=== PATIENT | female | born 2000 | race Caucasian/White ===

== ENCOUNTER 2021-05-21 16:31 | Emergency (ER) | payer OTHER, SELFPAY ==
[2021-05-21 16:38] VITALS: BP 125/72; PULSE 83; RESP 20; TEMP 37.2; O2SAT 100
--- NOTE | 2021-05-21 16:39 | ED.BACK ---
HPI - Back Pain/Injury General Chief Complaint: Back Pain/Injury Stated Complaint: Pain on right side of Ribs and left side of Back Time Seen by Provider: 05/21/21 16:39 Source: patient, family and RN notes reviewed History of Present Illness HPI Narrative: Patient is a 20-year-old female who presents the urgent care with her mother with complaints of left rib pain. 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 Patient states that she took Tylenol for the pain. States that when she holds the ribs it tends to feel better. States that she has had dark urine the past couple days but denies of any other urinary complaints such as frequency, urgency, hematuria. Patient denies of any trauma to the chest or ribs. Denies any shortness of breath or cough. No other acute complaints. No acute distress noted. Patient aware of the plan of care. Some parts of this dictation were generated by voice recognition software and may contain typographical and/or grammatical inaccuracies. Related Data Home Medications Medication Instructions Recorded Confirmed norelgestromin-ethin.estradiol 1 patch TRANSDERMAL WEEKLY 05/21/21 05/21/21 [Sondra] Allergies Allergy/AdvReac Type Severity Reaction Status Date / Time No Known Allergies Allergy Verified 05/21/21 16:47 Review of Systems Review of Systems: CONSTITUTIONAL: Denies fever, chills, or sweats. EYES: Denies visual changes, redness, or discharge. ENT: Denies rhinorrhea, congestion, sore throat, or otalgia. CARDIOVASCULAR: Denies chest pain, palpitations, or edema. RESPIRATORY: Denies cough or dyspnea. GASTROINTESTINAL: Denies abdominal pain, nausea, vomiting, or diarrhea. GENITOURINARY: Denies dysuria or hematuria. SKIN: Denies rash or itching. MUSCULOSKELETAL: Reports of right rib pain radiating to the right side/back NEUROLOGIC: Denies headache, numbness, or weakness. All other systems reviewed are negative, except as documented in HPI. PMFSH Comments At the time of my signature, I reviewed and agree with the nursing past medical, surgical, social, and family history. There is no relevant family history pertinent to the patient complaint. Exam Narrative: GENERAL: This is a well-nourished, well-developed patient, in no apparent distress. HEAD: normocephalic, atraumatic. EYES: PERRL. Sclera clear/white. Vision is grossly intact. EARS: External ears normal NOSE: External nose normal with no obvious nasal discharge, nares without redness, no rhinorrhea. THROAT: Mucous membranes moist NECK: Neck supple CARDIOVASCULAR: Regular rate and rhythm without murmurs, gallops, or rubs. RESPIRATORY: Negative anterior rib tenderness. Clear to auscultation. Breath sounds equal bilaterally. No wheezes, rales, or rhonchi. GASTROINTESTINAL: Abdomen soft, non-tender, nondistended. Bowel sounds are active. SKIN: warm, intact with no suspicious lesions or rash, good texture and turgor. NEURO: awake, alert, and oriented to person, place and time. There were no obvious focal neurologic abnormalities. EXTREMITIES: No clubbing, cyanosis, or edema. BACK: Nontender without deformity or crepitance. No flank tenderness. Course Vital Signs Vital signs: Vital Signs Temperature 99.0 F 05/21/21 16:38 Pulse Rate 83 05/21/21 16:38 Respiratory Rate 20 05/21/21 16:38 Blood Pressure 125/72 05/21/21 16:38 Pulse Oximetry 100 05/21/21 16:38 Temperature 99.0 F 05/21/21 16:38 Pulse Rate 83 05/21/21 16:38 Respiratory Rate 20 05/21/21 16:38 Blood Pressure 125/72 05/21/21 16:38 Pulse Oximetry 100 05/21/21 16:38 Reviewed MDM - Back Pain/Injury MDM Narrative Medical decision making narrative: Reviewed lab results with the mother and patient. Aware that urine analysis is not indicative of urinary tract infection. Considering your line of work, you may have pulled a muscle and was advised to take a day or 2 off work to rest.
== END 2021-05-21 17:05 | disposition home or self-care (01) ==
PROVIDERS: Emergency Provider Nurse Practitioner Family
DX: S29.011A Strain of muscle and tendon of front wall of thorax, initial encounter (principal); S29.012A Strain of muscle and tendon of back wall of thorax, initial encounter; X58.XXXA Exposure to other specified factors, initial encounter
CPT/HCPCS: 81003; 99212; G0463

== ENCOUNTER 2022-04-25 12:56 | Emergency (ER) | payer OTHER, SELFPAY ==
[2022-04-25 13:15] VITALS: BP 116/68; PULSE 66; RESP 14; TEMP 36.9; O2SAT 100
--- NOTE | 2022-04-25 13:32 | ED.GENADULT ---
HPI - General Adult General Chief complaint: Unspecified Stated complaint: Pregancy Test History of Present Illness HPI narrative: Patient left without being seen. Related Data Home Medications Medication Instructions Recorded Confirmed No Home Medications 04/25/22 04/25/22 Allergies Allergy/AdvReac Type Severity Reaction Status Date / Time No Known Allergies Allergy Verified 04/25/22 13:19 Course Course Level of Care: Express Care Visit Vital Signs Vital signs: Vital Signs Temperature 36.9 C 04/25/22 13:15 Pulse Rate 66 04/25/22 13:15 Respiratory Rate 14 04/25/22 13:15 Blood Pressure 116/68 04/25/22 13:15 Pulse Oximetry 100 04/25/22 13:15 Oxygen Delivery Room Air 04/25/22 13:15 Temperature 36.9 C 04/25/22 13:15 Pulse Rate 66 04/25/22 13:15 Respiratory Rate 14 04/25/22 13:15 Blood Pressure 116/68 04/25/22 13:15 Pulse Oximetry 100 04/25/22 13:15 Oxygen Delivery Room Air 04/25/22 13:15 Medical Decision Making Vital Signs Vital Signs: Vital Signs Temperature 36.9 C 04/25/22 13:15 Pulse Rate 66 04/25/22 13:15 Respiratory Rate 14 04/25/22 13:15 Blood Pressure 116/68 04/25/22 13:15 Pulse Oximetry 100 04/25/22 13:15 Oxygen Delivery Room Air 04/25/22 13:15 Temperature 36.9 C 04/25/22 13:15 Pulse Rate 66 04/25/22 13:15 Respiratory Rate 14 04/25/22 13:15 Blood Pressure 116/68 04/25/22 13:15 Pulse Oximetry 100 04/25/22 13:15 Oxygen Delivery Room Air 04/25/22 13:15 Discharge Plan Discharge Patient Disposition: Left Without Being Sn Triaged Prescriptions: No Action No Home Medications Follow-up/Referrals: PHYSICIAN,TURKEY EGG GATHERER [Primary Care Provider] -
== END 2022-04-25 13:33 | disposition left against medical advice (07) ==
PROVIDERS: Emergency Provider Nurse Practitioner Family
DX: Z53.21 Procedure and treatment not carried out due to patient leaving prior to being seen by health care provider (principal)
CPT/HCPCS: 99199

== ENCOUNTER 2022-11-23 13:18 | Emergency (ER) | payer OTHER, SELFPAY ==
[2022-11-23 13:22] VITALS: BP 137/77; PULSE 79; RESP 20; TEMP 36.6; O2SAT 100
--- NOTE | 2022-11-23 13:30 | ED.EAR ---
HPI - Ear Problem General Chief complaint: Ear Stated complaint: Left ear sounds Time Seen by Provider: 11/23/22 13:33 History of Present Illness HPI Narrative: PATIENT PRESENTS WITH THE FEELING OF FLUID IN HER LEFT EAR NO DRAINAGE FROM EARS NO DIZZINESS NO RECENT URI Related Data Home Medications Medication Instructions Recorded Confirmed No Home Medications 04/25/22 04/25/22 Allergies Allergy/AdvReac Type Severity Reaction Status Date / Time No Known Allergies Allergy Verified 04/25/22 13:19 Review of Systems Review of Systems: CONSTITUTIONAL: DENIES CHILLS, OR SWEATS. REPORTS FEVER AND GENERALIZED BODY ACHES EYES: DENIES VISUAL CHANGES, REDNESS, OR DISCHARGE. ENT: DENIES OTALGIA. REPORTS NASAL CONGESTION RUNNY NOSE AND SORE THROAT CARDIOVASCULAR: DENIES CHEST PAIN, PALPITATIONS, OR EDEMA. RESPIRATORY: DENIES DYSPNEA. REPORTS OCCASIONAL COUGH GASTROINTESTINAL: DENIES ABDOMINAL PAIN, NAUSEA, VOMITING, OR DIARRHEA. GENITOURINARY: DENIES DYSURIA OR HEMATURIA. SKIN: DENIES RASH OR ITCHING. MUSCULOSKELETAL: DENIES BACK PAIN, JOINT PAIN, OR MYALGIA. REPORTS GENERALIZED BODY ACHES NEUROLOGIC: DENIES HEADACHE, NUMBNESS, OR WEAKNESS. PSYCHIATRIC: DENIES ANXIETY OR DEPRESSION. PMFSH Comments AT TIME OF SIGNATURE, AGREE WITH NURSING PAST MEDICAL, SURGICAL, SOCIAL AND FAMILY HISTORY. THERE IS NO RELEVANT FAMILY HISTORY PERTINENT TO THE PRESENTING COMPLAINT Exam Narrative: THE PATIENT IS A WELL-DEVELOPED, WELL-NOURISHED IN NO ACUTE DISTRESS. SKIN: SKIN IS WARM AND DRY WITHOUT ERYTHEMA, SWELLING OR EXUDATE. THERE IS GOOD TURGOR. NO TENTING. HEAD: ATRAUMATIC. NORMOCEPHALIC. NO TEMPORAL OR SCALP TENDERNESS. EYES: MOIST AND BRIGHT. SCLERA AND CONJUNCTIVAE NORMAL. NO DISCHARGE. PERRLA. EXTRAOCULAR MOTIONS INTACT. GROSS VISUAL ACUITY INTACT. EARS: PINNA IS NORMAL SHAPE AND CONTOUR. CLEAR EXTERNAL AUDITORY CANALS. TM PEARLY SHELBY WITH GOOD CONE OF LIGHT, NO ERYTHEMA OR SUPPURATION. BILATERAL CERUMEN NOTED NO GROSS HEARING DEFICIT. NOSE: PINK, MOIST MUCOSA WITH GOOD AIR MOVEMENT. CLEAR RHINORRHEA WITHOUT NASAL FLARING. SEPTUM MIDLINE. MOUTH: MOIST MUCOUS MEMBRANES. THROAT; MILD ERYTHEMA NOTED TO POSTERIOR OROPHARYNX WITH MODERATE POSTNASAL DRAINAGE. WITHOUT EXUDATE OR ULCERATION.. UVULA MIDLINE. NORMAL MOVEMENT OF SOFT PALATE. NECK: SUPPLE AND NONTENDER WITH FULL RANGE OF MOTION WITHOUT DISCOMFORT. NO MENINGEAL SIGNS. LUNGS: EQUAL AND BILATERAL BREATH SOUNDS WITHOUT WHEEZES, RALES OR RHONCHI. CHEST: THE CHEST WALL IS WITHOUT RETRACTIONS OR USE OF ACCESSORY MUSCLES. HEART: HAS A REGULAR RATE AND RHYTHM WITHOUT MURMUR, GALLOPS, CLICK OR RUB. ABDOMEN: SOFT, NONTENDER WITH POSITIVE ACTIVE BOWEL SOUNDS. NO REBOUND TENDERNESS. EXTREMITIES: WITHOUT CYANOSIS, CLUBBING OR EDEMA. EQUAL 2+ DISTAL PULSES AND 2 SECOND CAPILLARY REFILL NOTED. NEUROLOGIC: ALERT, ACTIVE, . THE PATIENT MOVES ALL EXTREMITIES WITH NORMAL MUSCLE STRENGTH. NORMAL MUSCLE TONE IS NOTED. NORMAL COORDINATION IS NOTED. NO FOCAL NEUROLOGICAL FINDINGS NOTED. Course Course Level of Care: Express Care Visit Vital Signs Vital signs: Vital Signs Temperature 36.6 C 11/23/22 13:22 Pulse Rate 79 11/23/22 13:22 Respiratory Rate 20 11/23/22 13:22 Blood Pressure 137/77 11/23/22 13:22 Pulse Oximetry 100 11/23/22 13:22 Oxygen Delivery Room Air 11/23/22 13:22 Temperature 36.6 C 11/23/22 13:22 Pulse Rate 79 11/23/22 13:22 Respiratory Rate 20 11/23/22 13:22 Blood Pressure 137/77 11/23/22 13:22 Pulse Oximetry 100 11/23/22 13:22 Oxygen Delivery Room Air 11/23/22 13:22 Medical Decision Making Vital Signs Vital Signs: Vital Signs Temperature 36.6 C 11/23/22 13:22 Pulse Rate 79 11/23/22 13:22 Respiratory Rate 20 11/23/22 13:22 Blood Pressure 137/77 11/23/22 13:22 Pulse Oximetry 100 11/23/22 13:22 Oxygen Delivery Room Air 11/23/22 13:22 Temperature 36.6 C 11/23/22 13:22 Pulse Rate 79 11/23/22 13:22
== END 2022-11-23 13:39 | disposition home or self-care (01) ==
PROVIDERS: Emergency Provider Nurse Practitioner Family; PCP Family Medicine
DX: H69.92 Unspecified Eustachian tube disorder, left ear (principal); H65.92 Unspecified nonsuppurative otitis media, left ear
CPT/HCPCS: 99211; G0463

== ENCOUNTER 2023-07-04 14:29 | Emergency (ER) | payer OTHER, SELFPAY ==
[2023-07-04 14:35] VITALS: BP 119/88; PULSE 79; RESP 16; TEMP 36.8; O2SAT 100
--- NOTE | 2023-07-04 14:43 | ED.GENADULT ---
HPI - General Adult General Chief complaint: Unspecified Stated complaint: Lightheaded Time Seen by Provider: 07/04/23 14:43 Source: patient, RN notes reviewed and old records reviewed Mode of arrival: ambulatory Limitations: no limitations History of Present Illness HPI narrative: 22-year-old female presents to the [facility] feeling lightheaded this morning. Patient reports that she was at work when she got lightheaded, started feeling very hot. Denies any symptoms currently. Denies any blurry vision or change in vision. Denies any headaches, sinus congestion, ear pain. Denies fevers Related Data Home Medications Medication Instructions Recorded Confirmed No Home Medications 04/25/22 04/25/22 Allergies Allergy/AdvReac Type Severity Reaction Status Date / Time No Known Allergies Allergy Verified 04/25/22 13:19 Review of Systems Review of Systems: All systems reviewed & are unremarkable except as noted in HPI and below Constitutional: Constitutional: Reports as per HPI Eyes: Eyes: Reports no additional eye complaints ENT: Reports system reviewed and no additional complaints, except as documented Cardiovascular: Cardiovascular: Reports no additional cardiovascular complaints, Denies chest pain and Denies dyspnea Respiratory: Respiratory: Reports no additional respiratory complaints, Denies chest congestion, Denies cough and Denies dyspnea Gastrointestinal: Gastrointestinal: Reports no additional gastrointestinal complaints, Denies abdominal pain, Denies nausea and Denies vomiting Musculoskeletal: Musculoskeletal: Reports no additional musculoskeletal complaints Integumentary/Breasts: Skin/Breast: Reports system reviewed and no additional complaints, except as docu Neurologic: Reports system reviewed and no additional complaints, except as documented Psychiatric: Psychiatric: Reports no additional psychiatric complaints Allergic/Immunologic: Allergic/Immunologic: Reports no additional allergic/immunologic complaints PMFSH Comments At the time of my signature, I reviewed and agree with the nursing past medical, surgical, social, and family history. There is no relevant family history pertinent to the patient complaint. Exam Const: General: cooperative, healthy appearing, comfortable, no acute distress, well developed, alert and well nourished Nutritional Appearance: well nourished Orientation/consciousness: patient oriented x3 Limitations: no limitations HENMT: Head: normal to inspection Ears: hearing grossly normal bilaterally, external ears normal, TM's normal bilaterally, EAC's normal and mastoids normal Face/Nose/Sinus: Normal external nose present, Normal nares present, Normal nasal mucous membranes and turbinates present, normal facial exam and face symmetric Face and sinus: normal facial exam and face symmetric Mouth: Yes Normal oral and palatal mucosa present, Yes lip normal and Yes moist mucous membranes Throat: posterior oropharynx normal, tonsils normal and uvula midline Eyes: General: appearance normal, both eyes and all related structures Alignment and Position: alignment normal Periorbital: periorbital findings normal Eyelids: eyelids normal Conjunctivae: conjunctivae normal Pupils: Equal, round and reactive pupils present EOM: EOMs intact bilaterally Neck: Neck: normal visual inspection, full ROM, no lymphadenopathy and no meningeal signs Chest: Chest palpation & inspection: normal inspection of the chest Resp: Effort & Inspection: normal respiratory effort and able to speak in complete sentences Auscultation: clear to auscultation bilaterally, no crackles, no rales, no rhonchi and no wheezes Cardio: Rate: regular rate Rhythm: regular rhythm Back/Spine/Pelvis: Cervical Spine: cervical ROM normal Skin: General skin exam: normal color and no rashes or lesions noted Lesions: no lesions Rashes: no rashes Wounds: no wounds Neuro: General: patient oriented x3, gait normal, to
== END 2023-07-04 14:54 | disposition home or self-care (01) ==
PROVIDERS: Emergency Provider Nurse Practitioner
DX: R42 Dizziness and giddiness (principal)
CPT/HCPCS: 99211; G0463

== ENCOUNTER 2023-09-27 10:31 | Emergency (ER) | payer OTHER, SELFPAY ==
[2023-09-27 10:45] VITALS: BP 139/82; PULSE 83; RESP 16; TEMP 36.9; O2SAT 99
--- NOTE | 2023-09-27 10:45 | ED.URI ---
HPI - URI/Sore Throat General Chief Complaint: Upper Respiratory Infection Stated Complaint: Cough Source: patient Mode of arrival: ambulatory Limitations: no limitations History of Present Illness HPI Narrative: 23-year-old female presented for complaint of nasal congestion and cough for about 5 days. She denies shortness of breath, wheezing, nausea, vomiting, fevers or chills. Endorses sick contacts at work. Taking DayQuil and NyQuil for symptoms. Related Data Allergies Allergy/AdvReac Type Severity Reaction Status Date / Time No Known Allergies Allergy Verified 04/25/22 13:19 Review of Systems Review of Systems: CONSTITUTIONAL: Denies body aches, fever, chills, or sweats. EYES: Denies visual changes, redness, or discharge. ENT: reports rhinorrhea, congestion, denies sore throat, or otalgia. CARDIOVASCULAR: Denies chest pain, palpitations, or edema. RESPIRATORY: Reports cough, denies sob, wheezing. GASTROINTESTINAL: Denies abdominal pain, nausea, vomiting, or diarrhea. SKIN: Denies rash, itching, or wounds. MUSCULOSKELETAL: Denies back pain, joint pain, or myalgia. NEUROLOGIC: Denies headache, numbness, tingling, or weakness. All systems reviewed & are unremarkable except as noted in HPI and below PMFSH Past Medical History Medical History (Updated 09/27/23 @ 11:00 by Buffy Nash, ALICIA) No pertinent past medical history Comments At time of signature, I have reviewed and agree with nursing past medical, surgical, social and family history unless otherwise noted. Please see nursing chart for further information. There is no relevant family history pertinent to the presenting complaint Exam Narrative: GENERAL: Well-appearing, in no acute distress. EYES: EOMI. No redness or drainage. Conjunctivae normal. ENT: Mucous membranes pink and moist. congestion and rhinorrhea. TMs normal bilaterally. Throat normal. Uvula midline. NECK: Normal AROM. Supple. CHEST: No respiratory distress. Lungs clear to all durant. HEART: Regular rate and rhythm. No murmur appreciated. ABDOMEN: Soft, nontender, nondistended, normal active bowel sounds. EXTREMITIES: Normal range of motion. No edema. SKIN: Warm, dry, no rash. Capillary refill normal. Normal skin turgor. NEURO: Alert and oriented x3. Gait steady. PSYCH: Normal affect. Course Course Emergency Course: Patient is aware of diagnosis, understands and agrees to treatment plan. Anticipatory guidance given. Patient agrees to follow-up as directed and is aware of reasons to seek care at the emergency department. Portions of this record may have been created with voice recognition software Level of Care: Express Care Visit MDM - URI/Sore Throat MDM Narrative Medical decision making narrative: Discussed physical exam findings. Advised supportive measures and signs/symptoms to go to the ER. Pt is appropriate for outpt treatment and f/u. Differential Diagnosis Differential diagnosis: Likely upper respiratory infection, otitis media, sinusitis, viral infection, bronchitis, influenza and pharyngitis Discharge Plan Discharge Clinical Impression: Viral infection Patient Disposition: Home, Self-Care Condition: Stable Instructions: Antibiotic Form, Upper Respiratory Infection (ED) Additional Instructions: Recommend Flonase spray and Zyrtec (or Claritin/Roxy) over the counter Cough syrup may cause drowsiness; avoid driving or take it at night time. Tylenol 1000mg every 8 hours as needed for pain Symptomatic treatment includes: rest, fluids, and increase humidity of the air at home. Follow up with your primary care provider in 1 week. Go to the ER for worsening symptoms or concerns. Prescriptions: New benzonatate 200 mg capsule 200 mg PO TID PRN (Reason: cough) Qty: 30 0RF prednisone 20 mg tablet 40 mg PO DAILY 5 Days Qty: 10 0RF Follow-up/Referrals: UNKNOWN,DOCTOR [Primary Care Provider] - Stand Alone For
== END 2023-09-27 11:13 | disposition home or self-care (01) ==
PROVIDERS: Emergency Provider Nurse Practitioner Family
DX: B34.9 Viral infection, unspecified (principal)
CPT/HCPCS: 99213; G0463

== ENCOUNTER 2024-03-26 12:10 | Emergency (ER) | payer OTHER, SELFPAY ==
[2024-03-26 12:15] VITALS: BP 134/85; PULSE 90; RESP 16; TEMP 36.6; O2SAT 100
--- NOTE | 2024-03-26 12:18 | ED.GENADULT ---
HPI - General Adult General Chief complaint: Dental/Oral Stated complaint: Tooth pain Time Seen by Provider: 03/26/24 12:18 Source: patient, RN notes reviewed and old records reviewed Mode of arrival: ambulatory Limitations: no limitations History of Present Illness HPI narrative: 23-year-old female to Express Care for left upper molar pain intermittently for 1 year. Patient reports that when pain initially started she could not be treated due to . Patient states she attempted to call her dentist this morning but they were not open. Patient states it pain became significant last night. patient has been attempting to treat at home with ibuprofen, acetaminophen and ice. Patient reports that she has an appointment with her dentist on April 12. Patient denies fever, drainage from tooth, pertinent medical history, allergies. Patient able to tolerate fluids by mouth. Patient in no acute distress. Related Data Home Medications Medication Instructions Recorded Confirmed norelgestromin 150 mcg-e.estradiol 1 patch transdermal [id number] 03/26/24 03/26/24 35 mcg/24 hr weekly transderm patch (Xulane) Allergies Allergy/AdvReac Type Severity Reaction Status Date / Time No Known Allergies Allergy Verified 03/26/24 12:27 Review of Systems Review of Systems: All systems reviewed & are unremarkable except as noted in HPI and below Constitutional: Constitutional: Reports no additional constitutional complaints Eyes: Eyes: Reports no additional eye complaints ENT: Reports as per HPI, Reports dental pain ( left upper molar) and Denies sore throat Cardiovascular: Cardiovascular: Reports no additional cardiovascular complaints, Denies chest pain and Denies dyspnea Respiratory: Respiratory: Reports no additional respiratory complaints, Denies cough and Denies dyspnea Musculoskeletal: Musculoskeletal: Reports no additional musculoskeletal complaints Neurologic: Reports system reviewed and no additional complaints, except as documented Psychiatric: Psychiatric: Reports no additional psychiatric complaints PMFSH Past Medical History Medical History No pertinent past medical history Comments At the time of my signature, I reviewed and agree with the nursing past medical, surgical, social, and family history. There is no relevant family history pertinent to the patient complaint. Exam Const: General: cooperative, no acute distress, alert, ill appearing acutely ( pain), tired appearing, uncomfortable and well nourished Nutritional Appearance: well nourished Orientation/consciousness: patient oriented x3 Limitations: no limitations HENMT: Head: normal to inspection Ears: external ears normal Face/Nose/Sinus: Normal external nose present, Normal nares present, normal facial exam, No erythema and No edema Face and sinus: normal facial exam, no erythema and no edema Mouth: Yes Normal oral and palatal mucosa present Teeth and gingiva: caries, gingiva abnormal diffusely erythematous and tender, poor dentition and other (fracture to left upper 2nd molar) Throat: posterior oropharynx normal Eyes: General: appearance normal, both eyes and all related structures Neck: Neck: normal visual inspection, full ROM and no meningeal signs Lymphatic: no lymphadenopathy noted and no lymphedema noted Chest: Chest palpation & inspection: normal inspection of the chest Resp: Effort & Inspection: normal respiratory effort and able to speak in complete sentences Cardio: Jugular venous distension: no JVD Rate: regular rate Rhythm: regular rhythm Back/Spine/Pelvis: Cervical Spine: cervical ROM normal Skin: General skin exam: normal color, no rashes or lesions noted and turgor normal Neuro: General: patient oriented x3, gait normal, moves all extremities and no meningeal signs Speech: normal speech Gait exam (Neuro): Normal gait present Extrem: General: normal
== END 2024-03-26 13:00 | disposition home or self-care (01) ==
PROVIDERS: Emergency Provider Nurse Practitioner Family
DX: K04.7 Periapical abscess without sinus (principal); K02.9 Dental caries, unspecified; S02.5XXA Fracture of tooth (traumatic), initial encounter for closed fracture; X58.XXXA Exposure to other specified factors, initial encounter
CPT/HCPCS: 99213; G0463

== ENCOUNTER 2024-04-28 16:40 | Emergency (ER) | payer OTHER, SELFPAY ==
[2024-04-28 16:47] VITALS: BP 134/83; PULSE 82; RESP 14; TEMP 36.6; O2SAT 100
--- NOTE | 2024-04-28 16:59 | ED.DENTAL ---
HPI - Dental/Oral General Chief complaint: Dental/Oral Stated complaint: bump on inside of cheek Time Seen by Provider: 04/28/24 16:55 Source: patient and RN notes reviewed Mode of arrival: ambulatory Limitations: no limitations History of Present Illness HPI Narrative: Patient presents today stating that she noticed a small blister on the inside of her right cheek on her way home from work this evening. Denies pain or swelling. She called her dentist, who told her they could get her in for an emergency visit tomorrow, but she would have to take off work for this, so she came to [facility] for evaluation. Related Data Home Medications Medication Instructions Recorded Confirmed norelgestromin 150 mcg-e.estradiol 1 patch transdermal [id number] 03/26/24 04/28/24 35 mcg/24 hr weekly transderm patch (Xulane) Allergies Allergy/AdvReac Type Severity Reaction Status Date / Time No Known Allergies Allergy Verified 03/26/24 12:27 Review of Systems Review of Systems: CONSTITUTIONAL: Denies body aches, fever, chills, or sweats. EYES: Denies visual changes, redness, or discharge. ENT: Denies rhinorrhea, congestion, sore throat, or otalgia.+ blister inside mouth CARDIOVASCULAR: Denies chest pain, palpitations, or edema. RESPIRATORY: Denies cough or dyspnea. GASTROINTESTINAL: Denies abdominal pain, nausea, vomiting, or diarrhea. GENITOURINARY: Denies dysuria or hematuria. SKIN: Denies rash, itching, or wounds. MUSCULOSKELETAL: Denies back pain, joint pain, or myalgia. NEUROLOGIC: Denies headache, numbness, tingling, or weakness. PSYCH: Denies depression or anxiety. PMFSH Past Medical History Medical History No pertinent past medical history Comments At time of signature, I have reviewed and agree with nursing past medical, surgical, social and family history unless otherwise noted. Please see nursing chart for further information. There is no relevant family history pertinent to the presenting complaint Exam Narrative: GENERAL: Well-appearing, well-nourished, and in no acute distress. HEAD: Normocephalic, atraumatic. EYES: EOMI. No redness or drainage. Conjunctivae normal. ENT: Mucous membranes pink and moist. 2mm round dark blister on the inside right cheek. No surrounding edema or erythema. NECK: Normal AROM. CHEST: No respiratory distress. EXTREMITIES: Normal range of motion. No edema. SKIN: Warm, dry, no rash. Capillary refill normal. Normal skin turgor. NEURO: No focal deficits. Alert and oriented x3. Gait steady. PSYCH: Normal affect. No signs of depression or anxiety. Course Course Level of Care: Express Care Visit Vital Signs Vital signs: Vital Signs Temperature 98 F 04/28/24 16:47 Pulse Rate 82 04/28/24 16:47 Respiratory Rate 14 04/28/24 16:47 Blood Pressure 134/83 04/28/24 16:47 Pulse Oximetry 100 04/28/24 16:47 Oxygen Delivery Room Air 04/28/24 16:47 Temperature 98 F 04/28/24 16:47 Pulse Rate 82 04/28/24 16:47 Respiratory Rate 14 04/28/24 16:47 Blood Pressure 134/83 04/28/24 16:47 Pulse Oximetry 100 04/28/24 16:47 Oxygen Delivery Room Air 04/28/24 16:47 Reviewed MDM - Dental/Oral MDM Narrative Medical decision making narrative: Patient's lesion appears that she may have bitten the inside of her cheek today. It appears benign. Does not warrant any treatment at this time. Anticipatory guidance given. Differential Diagnosis Differential diagnosis: Likely other (blister, ecchymosis) Critical Care Time Critical Care Time Critical Care Time: No Discharge Plan Discharge Clinical Impression: Lesion of mouth Patient Disposition: Home, Self-Care Condition: Stable Additional Instructions: The lesion inside your mouth should heal on its own. As discussed, if you develop any redness, swelling, or increased pain, please see your PCP. Your blood pressure wa
== END 2024-04-28 17:10 | disposition home or self-care (01) ==
PROVIDERS: Emergency Provider Nurse Practitioner
DX: K13.70 Unspecified lesions of oral mucosa (principal)
CPT/HCPCS: 99211; G0463

== ENCOUNTER 2025-03-21 14:39 | Emergency (ER) | payer OTHER, SELFPAY ==
[2025-03-21 14:50] VITALS: BP 137/79; PULSE 103; RESP 20; TEMP 36.8; O2SAT 98
--- NOTE | 2025-03-21 15:02 | ED.ANIMALBIT ---
HPI - Animal Bite General Chief Complaint: Animal Bite Stated Complaint: Dog Bite Left Leg Time Seen by Provider: 03/21/25 15:03 Source: patient and RN notes reviewed Mode of arrival: ambulatory Limitations: dementia History of Present Illness HPI narrative: 24-year-old female presents with concern for dog bite. Reports on Friday she was bit on the left buttock and left ankle. Reports she has been cleaning it and putting a dressing on it. She denies any drainage, redness, warmth to the bites. She did not know the dog that bit her. MD complaint: animal bite Related Data Home Medications ?Medication ?Instructions ?Recorded ?Confirmed ?Last Taken ?Type norelgestromin 150 mcg-e.estradiol 1 patch transdermal [id number] 03/26/24 04/28/24 Unknown History 35 mcg/24 hr weekly transderm patch (Xulane) Allergies Allergy/AdvReac Type Severity Reaction Status Date / Time No Known Allergies Allergy Verified 03/26/24 12:27 Review of Systems Review of Systems: CONSTITUTIONAL: Denies malaise, chills, sweats, or fever. EYES: Denies redness, or discharge. ENT: Denies rhinorrhea, congestion, swollen lips, swollen tongue CARDIOVASCULAR: Denies chest pain, palpitations, or edema. RESPIRATORY: Denies cough or dyspnea. GASTROINTESTINAL: Denies abdominal pain, nausea, vomiting SKIN: 3 puncture wounds with surrounding ecchymosis noted to the left buttock. Two puncture wounds noted to the left ankle with very mild surrounding erythema without induration, warmth. No drainage noted Denies purulent drainage, vesicles, bullae, numbness, pain beyond proportion MUSCULOSKELETAL: Denies joint pain or myalgia. NEUROLOGIC: Denies headache. All systems reviewed & are unremarkable except as noted in HPI and below PMFSH Past Medical History Medical History No pertinent past medical history Comments At time of signature, agree with nursing past medical, surgical, social and family history. There is no relevant family history pertinent to the presenting complaint Exam Narrative: GENERAL: Well-appearing, well-nourished, and in no acute distress. HEAD: Normocephalic, atraumatic. EYES: PERRLA, conjunctivae clear ENT: Mucous membranes moist. NECK: Supple. No lymphadenopathy CHEST: Clear to auscultation. No respiratory distress. HEART: Regular rate and rhythm. SKIN: Warm, dry. Erythema, induration, tenderness, warmth with sharp margins noted (xx). No vesicles, bullae, necrosis, ecchymosis, crepitus noted. NEURO: Alert and oriented x3. PSYCH: Normal mood and affect Course Course Emergency Course: Patient was advised to contact [facility] find out the dog's vaccination status and if she cannot find out vaccination status she should go to the emergency room for rabies vaccinations. She is agreeable. Patient is aware of diagnosis, understands and agrees to treatment plan. Anticipatory guidance given. Patient agrees to follow-up as directed and is aware of reasons to seek care at the emergency department. Portions of this record may have been created with voice recognition software Level of Care: Express Care Visit Vital Signs Vital signs: Vital Signs Temperature 98.2 F 03/21/25 14:50 Pulse Rate 103 H 03/21/25 14:50 Respiratory Rate 20 03/21/25 14:50 Blood Pressure 137/79 03/21/25 14:50 Pulse Oximetry 98 03/21/25 14:50 Oxygen Delivery Room Air 03/21/25 14:50 Temperature 98.2 F 03/21/25 14:50 Pulse Rate 103 H 03/21/25 14:50 Respiratory Rate 20 03/21/25 14:50 Blood Pressure 137/79 03/21/25 14:50 Pulse Oximetry 98 03/21/25 14:50 Oxygen Delivery Room Air 03/21/25 14:50 Reviewed. Critical Care Time Critical Care Time Critical Care Time: No Discharge Plan Discharge Clinical Impression: Dog bite Patient Disposition: Home Condition: Stable Instructions: Animal Bite (ED) Additional Instructions: 1) Please follow-up with your primary care doctor in the next 1-2 days. 2) If you have any worsening of symptoms or any other urgent concerns please go to the ER. 3) Please take ibuprofen as needed for pain. Elevate and apply warm compress to the wound on your ankle. Please follow-up with animal [facility] regarding the dog's vaccines status. If you are unable to find out the dog's vaccine status you need to go to an emergency room for rabies vaccinations. 4) Please read and follow information included in discharge instructions. Patient Language: Ethiopian Prescriptions: No Action norelgestromin-ethin.estradiol [Xulane] 150-35 mcg/24 hr patch weekly 1 patch transdermal [id number] Follow-up/Referrals: Scott,Eugenie Rosas APN [Primary Care Provider] - Time of Disposition: 15:08
--- OUTSIDE RECORDS SUMMARY | 2025-03-21 15:47 | XMS_ITS | Clinical Summary ---
Author Organization [facility] Address [address] [place] [address] Care Team Providers Care Curb Attendant Name Role Phone Unavailable Primary Care Provider Unavailabl e Source Comments [facility],non-owned Affiliates and Associated Physician Practices is amultiple site organization consisting of ambulatory clinics and hospital sitesin [place], [place], [place] and [place]. This disclosure is being madepursuant to the Care Everywhere program and may not contain all information available regarding this patient. Last updated 18.[facility] [employer] Social History Tobacco Use Types Packs/Day Years Used Date Smoking Tobacco: Never Assessed Comments No Sex and Gender Information Value Date Recorded Sex Assigned at Not on file Legal Sex Female 8:43 AM CDT Gender Identity Not on file Sexual Orientation Not on file Plan of Treatment Health Maintenance Due Date Last Done Comments PAP SMEAR 1999 HIV SCREENING 2014 HPV VACCINE (1 - 3-dose series) 2014 CHLAMYDIA/GONORRHEA SCREENING 2015 HEPATITIS C SCREENING 07/28/2017 DTAP/TDAP/TD VACCINES (1 - Tdap) 2018 HEPATITIS B VACCINE (1 of 3 - 19+ 3-dose series) 2018 COVID-19 VACCINE (3 - 2023-2 5 season) 2024 06/11/2021, 05/14/2021 DEPRESSION SCREENING 10/13/2024 INFLUENZA VACCINE (Season Ended) 2025 ZOSTER VACCINE (1 of 2) 2049 HIB VACCINE Aged Out No longer eligi ble based on patient's age to complete this topic MENINGOCOCCAL (Group B) VACCINE SHARED DECISION-MAKING Aged Out No longer eligible based on patient's age to complete this topic MENINGOCOCCAL GROUPS A/C/Y/W VACCINE Aged Out No longer eligible b ased on patient's age to complete this topic PNEUMOCOCCAL VACCINE Aged Out No long er eligible based on patient's age to complete this topic Insurance MEDICAID [employer] [place]
== END 2025-03-21 15:11 | disposition home or self-care (01) ==
PROVIDERS: Emergency Provider Nurse Practitioner; PCP Nurse Practitioner Family
DX: S31.823A Puncture wound without foreign body of left buttock, initial encounter (principal); S91.032A Puncture wound without foreign body, left ankle, initial encounter; W54.0XXA Bitten by dog, initial encounter
CPT/HCPCS: 99212; G0463